=== PATIENT | female | born 1945 | race Caucasian/White ===

== ENCOUNTER 2018-07-11 07:34 | Day surgery (SDC) | payer OTHER, BC ==
[2018-07-10 13:42] VITALS: BMI 40.6
[2018-07-11 09:54] VITALS: TEMP 98.1
[2018-07-11 10:15] VITALS: PULSE 68
[2018-07-11 10:44] VITALS: BP 149/68
--- NOTE | 2018-07-12 11:14 | PATH ---
Surgical Pathology Report Patient Name: YURY JON [facility]. Rec. #: [id number] /Age/Gender: 1945 (Age: 72) / F Account: [id number] Location: [facility]-ENDOSCOPY Taken: 07/11/2018 Received: 07/11/2018 Reported: 07/12/2018 Physicians: Seven Maynard D.O. Specimen(s) Received RECTAL POLYP Clinical History Screening colonoscopy, family history of colon cancer Postoperative diagnosis: Diverticulosis, colon polyp Final Diagnosis RECTUM, POLYP, BIOPSY: HYPERPLASTIC POLYP. Electronically Signed Monique Jensen M.D. Gross Description Received in formalin, labeled "biopsy rectal polyp" are 2 solorzano, irregular portions of soft tissue measuring 0.2 and 0.4 cm. in greatest dimension. The specimens are submitted in toto in one cassette. 07/11/201807/11/2018
== END 2018-07-11 10:52 | disposition home or self-care (01) ==
LOC: JASU-ENDO 07:34
PROVIDERS: ATTEND Internal Medicine Gastroenterology
PROC: 0DBP8ZX Excision of Rectum, Via Natural or Artificial Opening Endoscopic, Diagnostic (ICD-10-PCS; principal; 2018-07-11 10:15)
DX: Z12.11 Encounter for screening for malignant neoplasm of colon (principal); Z80.0 Family history of malignant neoplasm of digestive organs; K57.30 Diverticulosis of large intestine without perforation or abscess without bleeding; K64.8 Other hemorrhoids; K62.1 Rectal polyp
CPT/HCPCS: 88305-TC